=== PATIENT | male | born 1955 | race Caucasian/White ===

== ENCOUNTER 2021-11-08 07:38 | Outpatient (CLI) | payer OTHER | END 2021-11-08 07:39 | disposition home or self-care (01) | LOC: BICCT 07:38 | DX: Z13.6 Encounter for screening for cardiovascular disorders (principal) | CPT/HCPCS: 75571; 76700 ==

== ENCOUNTER 2023-07-18 08:26 | Outpatient (CLI) | payer MEDICARE | END 2023-07-18 08:27 | disposition home or self-care (01) | LOC: BICULT 08:26 | PROVIDERS: ATTEND Emergency Medicine | DX: I25.10 Atherosclerotic heart disease of native coronary artery without angina pectoris (principal); R10.9 Unspecified abdominal pain | CPT/HCPCS: 76700; 93880 ==